=== PATIENT | male | born 1955 | race Caucasian/White ===

== ENCOUNTER 2023-06-11 08:36 | Outpatient (CLI) | payer MEDICARE ==
--- NOTE | 2023-06-11 09:53 | XRAY Report ---
PROCEDURE: Chest 2V INDICATIONS: COUGH TECHNIQUE: 2 views of the chest were acquired. COMPARISON: None. FINDINGS: Surgical changes and devices: None. Lungs and pleura: No pleural effusions or pneumothorax. Lungs are clear. Mediastinum: Mediastinal contours appear normal. Heart size is normal. There is elevation of the right hemidiaphragm. Bones and chest wall: No suspicious bony lesions. Overlying soft tissues appear unremarkable. IMPRESSION: No acute cardiopulmonary process. Reviewed by: Elaine Frazier MD on 06/11/2023 9:52 AM PDT Approved by: Elaine Frazier MD on 06/11/2023 9:52 AM PDT Station ID: [id number]
== END 2023-06-11 08:37 | disposition home or self-care (01) ==
LOC: DI 08:36
PROVIDERS: ATTEND Physician Assistant
DX: R06.02 Shortness of breath (principal)

== ENCOUNTER 2023-07-21 16:24 | Outpatient (CLI) | payer MEDICARE | END 2023-07-21 16:25 | disposition home or self-care (01) | LOC: RT 16:24 | PROVIDERS: ATTEND Physician Assistant | DX: R93.89 Abnormal findings on diagnostic imaging of other specified body structures (principal); Q79.1 Other congenital malformations of diaphragm | CPT/HCPCS: 94010; 94727; 94729 ==